=== PATIENT | male | born 1980 | race Caucasian/White ===

== ENCOUNTER 2018-05-09 05:24 | Day surgery (SDC) | payer OTHER ==
[2018-05-09] MEDS: CEFAZOLIN 2 GM/50 ML (PMX) 50 ML IVPB (06:35)
[2018-05-09] MEDS: LACTATED RINGER'S 1,000 ML IV* ×2 (06:37)
[2018-05-09] MEDS: POLYMYXIN/BACITRACIN 1L IRRIG (06:47)
[2018-05-09] MEDS ORDERED: SUCCINYLCHOLINE CHLORIDE 100 MG/5 ML SYG IV ×2 (07:00→08:15)
[2018-05-09] MEDS ORDERED: SEVOFLURANE 15 MIN (07:00)
[2018-05-09] MEDS ORDERED: MIDAZOLAM 1 MG/ML 2 ML INJ (07:00)
[2018-05-09] MEDS ORDERED: PROPOFOL 20 ML ×2 (07:00→08:15)
[2018-05-09] MEDS ORDERED: ROCURONIUM 50 MG INJ ×2 (07:00→08:15)
[2018-05-09] MEDS ORDERED: LIDOCAINE 2% (SDV) 5 ML INJ (07:00)
[2018-05-09] MEDS ORDERED: CEFAZOLIN 1 GM INJ (07:08)
[2018-05-09] MEDS ORDERED: FAMOTIDINE 20 MG INJ (07:35)
[2018-05-09] MEDS ORDERED: DEXAMETHASONE 4 MG/ML 1 ML INJ (07:35)
[2018-05-09] MEDS ORDERED: ONDANSETRON 4 MG INJ (07:35)
[2018-05-09] MEDS ORDERED: GELATIN SIZE 100 SPONGE (07:46)
[2018-05-09] MEDS ORDERED: THROMBIN 5000 UNIT VIAL (07:46)
[2018-05-09] MEDS: BUPIVACAINE 0.25% (MPF) 30 ML INJ (07:46)
[2018-05-09] MEDS ORDERED: hydrALAzine 20 MG INJ (08:01)
[2018-05-09] MEDS ORDERED: HYDROmorphONE 2 MG/ML SYG (08:16)
[2018-05-09] MEDS ORDERED: PROCHLORPERAZINE 10 MG INJ IV (08:30)
[2018-05-09] MEDS ORDERED: hydrALAzine 20 MG INJ IV (08:30)
[2018-05-09] MEDS ORDERED: MEPERIDINE 25 MG INJ IV (08:30)
[2018-05-09] MEDS ORDERED: HYDROmorphONE 1 MG/5 ML IV SYRINGE IV (08:30)
[2018-05-09] MEDS ORDERED: OXYCODONE/ACETAMINOPHEN (5/325) TAB PO ×2 (08:30→10:00)
[2018-05-09] MEDS ORDERED: LABETALOL HCL 20MG INJ IV (08:30)
[2018-05-09] MEDS ORDERED: DIPHENHYDRAMINE 50 MG INJ IV (08:30)
[2018-05-09] MEDS ORDERED: FENTAnyl 50 MCG/ML VIAL IV ×3 (08:30)
[2018-05-09] MEDS ORDERED: LACTATED RINGER'S 1,000 ML IV (09:38)
[2018-05-09] MEDS: ONDANSETRON 4 MG INJ IV ×2 (10:05→13:49)
[2018-05-09] MEDS: HYDROmorphONE 1 MG/5 ML IV SYRINGE IV ×3 (10:05→10:58)
[2018-05-09] MEDS: OXYCODONE/ACETAMINOPHEN (5/325) TAB PO ×2 (10:49→15:34)
== END 2018-05-09 16:38 | disposition home or self-care (01) ==
LOC: REC 05:24 → SDS 05:24
DX: M51.26 Other intervertebral disc displacement, lumbar region (principal); M51.27 Other intervertebral disc displacement, lumbosacral region
CPT/HCPCS: 63030; 72020; 86850; 86900; 86901; 86920; 88304; 97116; 97162; 97530